=== PATIENT | female | born 2000 | race Caucasian/White ===

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

== ENCOUNTER 2019-04-25 15:29 | Emergency (ER) | payer SELFPAY ==
--- NOTE | 2019-04-25 15:35 | PDOC ---
History of Present Illness - General Chief Complaint: Sore Throat Stated Complaint: "I NEED TO GET STREP THROAT DONE" Time Seen by Provider: 04/25/19 15:35 - History of Present Illness Initial Comments: 04/25/19 17:03 HPI: 19 y/o F with hx of asthma presenting with sore throat since yesterday morning that has been worsening through today. She also reports subjective fevers, chills, rhinorrhea, non-productive cough, and pleuritic chest pain. She reports some SOB, but it is stable on her albuterol inhaler and she hasnt required additional medication or increased frequency. She tried motrin at home with mild relief. She reports multiple sick contacts and is concerned for flu or strep. She denies abd pain, n/v, dysuria, change in appetite. PMHx: as noted above ROS: as noted SHx: reports Juul use and 1 pod lasts 2-3 days; occasional alcohol use; frequent MJ use Allergies: NKDA ROS: GENERAL/CONSTITUTIONAL: +fever and chills. No weakness. HEAD, EYES, EARS, NOSE AND THROAT: No change in vision. No ear pain or discharge. +sore throat. CARDIOVASCULAR: +pleuiritic chest pain and SOB RESPIRATORY: No cough, wheezing, or hemoptysis. GASTROINTESTINAL: No nausea, vomiting, diarrhea or constipation. GENITOURINARY: No dysuria, frequency, or change in urination. MUSCULOSKELETAL: No joint or muscle swelling or pain. No neck or back pain. SKIN: No rash NEUROLOGIC: No headache, vertigo, loss of consciousness, or change in strength/ sensation. ENDOCRINE: No increased thirst. No abnormal weight change HEMATOLOGIC/LYMPHATIC: No anemia, easy bleeding, or history of blood clots. ALLERGIC/IMMUNOLOGIC: No hives or skin allergy. PE: GENERAL: Awake, alert, and fully oriented, no acute distress HEAD: No signs of trauma, normocephalic, atraumatic EYES: EOMI, sclera anicteric, conjunctiva clear ENT: Auricles normal inspection, hearing grossly normal, nares patent, oropharynx with mild erythema, no exudates. Moist mucosa NECK: Normal ROM, no lymphadenopathy LUNGS: No increased work of breathing, symmetrical chest rise, clear to auscultation bilaterally, no wheezes, crackles or rhonchi HEART: Regular rate and rhythm, normal S1 and S2, no murmurs, peripheral pulses 2+ and equal bilaterally. ABDOMEN: Soft, nondistended, nontender, normoactive bowel sounds. No guarding, no rebound. No masses. No CVAT EXTREMITIES: Normal inspection, Normal range of motion, no edema. No clubbing or cyanosis. NEUROLOGICAL: Cranial nerves II through XII grossly intact. Normal speech, normal gait, no focal sensorimotor deficits SKIN: Warm, Dry, normal turgor, no rashes or lesions noted Past History - Past Medical History Allergies/Adverse Reactions: Allergies Allergy/AdvReac Type Severity Reaction Status Date / Time Penicillins Allergy Severe Verified 04/25/19 15:31 Home Medications: Ambulatory Orders Albuterol Sulfate Inhaler - [Ventolin HFA Inhaler -] 2 inh IH Q4H PRN #1 inh 07/11 Asthma: Yes COPD: No - Immunization History Td Vaccination: Yes Immunization Up to Date: Yes - Psycho Social/Smoking Cessation Hx Smoking Status: No Smoking History: Never smoked Have you smoked in the past 12 months: No Number of Cigarettes Smoked Daily: 0 Hx Alcohol Use: No Drug/Substance Use Hx: No Substance Use Type: None Medical Decision Making - Medical Decision Making 04/25/19 18:53 19 y/o F with hx of asthma presenting with sore throat since yesterday morning that has been worsening through today associated with fever, chills, cough, pleuritic chest pain. VSS, AF. PE with mild posterior oropharynx erythema -rapid strep and throat culture 04/25/19 18:57 rapid negative DC home with conservative management recs patient comfortable with plans Discharge - Discharge Information Problems reviewed: Yes Clinical Impression/Diagnosis: Throat pain, Viral syndrome Condition: Stable Disposition: HOME - Follow up/Referral - Patient Discharge Instructions Patient Printed Discharge Instructions: DI for Viral Syndrome Additional Instructions: Additional Instructions: Please return to the emergency department with any new or worsening symptoms or concerns. Please follow up with your primary care physician within 72 hours for re- evaluation You may take motrin 600mg every 6 hours and tylenol 650mg every 6 hours as needed for pain control. You may take over the counter decongestants for symptomatic relief. Recommending warm soups and tea with lemon and honey for symptomatic relief as well. Please ensure adequate hydration - Post Discharge Activity Work/Back to School Note: Back to Work
--- NOTE | 2019-04-25 15:36 | PDOC ---
Attending Attestation - Resident Resident Name: Ranjan Hansen - HPI HPI: 04/25/19 16:29 Pt presents to the ED complaining of a one day history of sore throat, rhinorrhea and sneezing. Denies fever, nausea or vomiting. Tolerating PO with decreased appetite. Denies myalgias. Presents today requesting "strep throat test". - Physicial Exam PE: 04/25/19 16:35 Agree with resident exam. - Medical Decision Making 04/25/19 16:52 pt presents to the ED complaining of sore throat without fever that is most consistent with viral URI. will check rapid strep, discharge home if negative.
[2019-04-25 15:48] VITALS: BP 124/80; PULSE 93; TEMP 99.8; BMI 22.1
[2019-04-25] MEDS ORDERED: ACETAMINOPHEN 500 MG TABLET (FP) PO ONE (16:18)
[2019-04-25] MEDS ORDERED: ACETAMINOPHEN 325 MG TABLET (FP) ONE (16:20)
== END 2019-04-25 17:15 | disposition home or self-care (01) ==
LOC: FER 15:29
DX: B34.9 Viral infection, unspecified (principal); J02.9 Acute pharyngitis, unspecified; J45.909 Unspecified asthma, uncomplicated
CPT/HCPCS: 87070; 87186; 87880; 99281-25

== ENCOUNTER 2019-06-30 12:37 | Emergency (ER) | payer OTHER ==
[2019-06-30 12:55] VITALS: BP 135/80; PULSE 88; TEMP 98.1; BMI 22.1
[2019-06-30] MEDS ORDERED: ALBUTEROL SO4 2.5/IPRATROPIUM 0.5 INH SOL 3 ML VIAL.NEB. NEB ONE ×2 (13:01→13:03)
[2019-06-30] MEDS ORDERED: predniSONE 20 MG TABLET (UD) PO ONE (13:01)
[2019-06-30] MEDS ORDERED: predniSONE 20 MG TABLET (UD) ONE (13:03)
--- NOTE | 2019-06-30 13:06 | PDOC ---
History of Present Illness - General Chief Complaint: Cold Symptoms Stated Complaint: COUGH Time Seen by Provider: 06/30/19 12:43 History Source: Patient Exam Limitations: No Limitations - History of Present Illness Initial Comments: 06/30/19 13:03 19 y/o female with cough for 1 week. Had fever earlier in the week but continues to cough. Took inhaler and Prednisone 20 mg daily for 3 days. No traveling. No N/V/d/C. Is this a multiple visit Asthma Patient?: No Past History - Past Medical History Allergies/Adverse Reactions: Allergies Allergy/AdvReac Type Severity Reaction Status Date / Time Penicillins Allergy Severe Verified 06/30/19 12:38 Home Medications: Ambulatory Orders Albuterol Sulfate Inhaler - [Ventolin HFA Inhaler -] 2 inh IH Q4H PRN #1 inh 07/11 Albuterol 0.083% Nebulizer Marimar [Ventolin 0.083%] 1 neb NEB QID 06/30/19 Azithromycin [Zithromax -] 250 mg PO UTDICT #6 tab 06/30/19 predniSONE [Deltasone -] 20 mg PO BID #10 tablet 06/30/19 Asthma: Yes COPD: No - Immunization History Td Vaccination: Yes Immunization Up to Date: Yes - Psycho Social/Smoking Cessation Hx Smoking Status: No Smoking History: Current every day smoker Have you smoked in the past 12 months: Yes Number of Cigarettes Smoked Daily: 0 Information on smoking cessation initiated: Yes Hx Alcohol Use: No Drug/Substance Use Hx: Yes (MARIJUANA) Substance Use Type: None Review of Systems - Review of Systems Able to Perform ROS?: Yes Is the patient limited Kyrgyz proficient: No Constitutional: No: Chills, Fever Respiratory: Yes: Cough. No: Shortness of Breath Cardiac (ROS): No: Chest Pain, Edema ABD/GI: No: Nausea, Vomiting Musculoskeletal: No: Back Pain All Other Systems: Reviewed and Negative *Physical Exam - Vital Signs Last Vital Signs Temp Pulse Resp BP Pulse Ox 98.1 F 88 20 135/80 100 06/30/19 12:38 06/30/19 12:38 06/30/19 12:38 06/30/19 12:38 06/30/19 12:38 - Physical Exam General Appearance: Yes: Nourished, Appropriately Dressed. No: Apparent Distress HEENT: positive: EOMI, CARISSA, Normal ENT Inspection, Normal Voice, Symmetrical, Pharynx Normal Neck: positive: Trachea midline, Normal Thyroid, Supple. negative: Tender, Rigid Respiratory/Chest: positive: Chest Tender, Normal Breath Sounds. negative: Lungs Clear (coarse breath sounds no wheezing), Respiratory Distress Cardiovascular: positive: Regular Rhythm, Regular Rate, S1, S2. negative: Edema , JVD, Murmur Vascular Pulses: Femoral (R): 4+, Femoral (L): 4+, Carotid (R): 4+, Carotid (L) : 4+, Dorsalis-Pedis (R): 4+, Doralis-Pedis (L): 4+ Gastrointestinal/Abdominal: positive: Normal Bowel Sounds, Flat, Soft. negative : Tender Lymphatic: negative: Adenopathy, Tenderness, Other Musculoskeletal: positive: Normal Inspection. negative: CVA Tenderness Extremity: positive: Normal Capillary Refill, Normal Inspection, Normal Range of Motion. negative: Calf Tenderness (no calf tenderness b/l) Integumentary: positive: Normal Color, Dry, Warm Neurologic: positive: 3d modeler II-XII NML intact, Fully Oriented, Alert, Normal Mood/ Affect, Normal Response, Motor Strength / ED Progress Note - Progress Note Progress Note: 06/30/19 13:05 Pt appears to have asthmatic bronchitis will treat with DuoNeb and Prednisone Obtain CXR 06/30/19 13:34 CXR NAD Patient is feeling better Will treat for asthmatic bronchitis If worsen return to ER Pt is in agreement with plan Discharge - Discharge Information Problems reviewed: Yes Clinical Impression/Diagnosis: Asthmatic bronchitis Qualifiers: Asthma severity: mild Asthma persistence: persistent Asthma complication type: with acute exacerbation Qualified Code(s): J45.31 - Mild persistent asthma with (acute) exacerbation Condition: Good Disposition: HOME - Admission No - Follow up/Referral - Patient Discharge Instructions Patient Printed Discharge Instructions: DI for Acute Bronchitis Additional Instructions: Z-pack as directed Prednisone 20 mg 2x/day for 5 days Continue asthma inhalers as needed If worsen return to ER - Post Discharge Activity Work/Back to School Note: Back to Work
== END 2019-06-30 13:55 | disposition home or self-care (01) ==
LOC: FER 12:37
PROC: 3E0F7GC Introduction of Other Therapeutic Substance into Respiratory Tract, Via Natural or Artificial Opening (ICD-10-PCS; principal; 2019-06-30)
DX: J45.31 Mild persistent asthma with (acute) exacerbation (principal); Z88.0 Allergy status to penicillin; F17.210 Nicotine dependence, cigarettes, uncomplicated
CPT/HCPCS: 71046-TC-FY; 99282-25

== ENCOUNTER 2021-02-13 12:08 | Emergency (ER) | payer OTHER ==
[2021-02-13] MEDS ORDERED: ONDANSETRON *ODT* 4 MG TABLET SL ONE (12:28)
[2021-02-13] MEDS ORDERED: ONDANSETRON *ODT* 4 MG TABLET ONE (12:31)
[2021-02-13 12:35] VITALS: BP 112/72; PULSE 62; TEMP 98; BMI 23.9
[2021-02-13 13:09] LABS: BASO % 2.4 % (0-2.0); EOS % 0.8 % (0-4.5); HEMATOCRIT 41.5 % (32.4-45.2); HEMOGLOBIN 13.6 GM/dl (10.7-15.3); MCH 29.5 pg (25.7-33.7); MCHC 32.8 g/dl (32.0-36.0); MEAN PLT VOLUME 9.7 fl (7.5-11.1); MONO % 6.1 % (3.8-10.2); NEUT % 81.7 % (42.8-82.8); PLATELET COUNT 117 10^3/uL (134-434); RBC 4.62 M/mm3 (3.60-5.2); RDW 12.6 % (11.6-15.6); WHITE BLOOD COUNT 7.2 K/mm3 (4.0-10.8)
[2021-02-13 13:16] LABS: ALBUMIN 4.7 g/dl (3.4-5.0); BILIRUBIN,TOTAL 0.7 mg/dl (0.2-1); CALCIUM 9.1 mg/dl (8.5-10); CREATININE 0.6 mg/dl (0.55-1.3); TOT PROT 7.1 g/dl (6.4-8.2)
[2021-02-13] MEDS ORDERED: KETOROLAC TROMETHAMINE 30 MG/1 ML VIAL IM ONE (13:37)
== END 2021-02-13 14:20 | disposition home or self-care (01) ==
LOC: FER 12:08
DX: N83.202 Unspecified ovarian cyst, left side (principal)
CPT/HCPCS: 36415; 76830-TC; 80053; 81003; 84703; 85025; 93005; 99285-25; C9803; Q0162; U0003; U0005

== ENCOUNTER 2021-06-14 18:00 | Emergency (ER) | payer OTHER ==
[2021-06-14] MEDS ORDERED: ALBUTEROL SO4 2.5/IPRATROPIUM 0.5 INH SOL 3 ML VIAL.NEB. NEB ONE ×3 (18:11→18:42)
[2021-06-14] MEDS ORDERED: predniSONE 20 MG TABLET (UD) PO ONE (18:11)
[2021-06-14 18:18] VITALS: BP 130/68; PULSE 76; TEMP 98.7; BMI 23.0
[2021-06-14] MEDS ORDERED: predniSONE 20 MG TABLET (UD) ONE (18:20)
== END 2021-06-14 19:52 | disposition home or self-care (01) ==
LOC: FER 18:00
PROC: 3E0F7GC Introduction of Other Therapeutic Substance into Respiratory Tract, Via Natural or Artificial Opening (ICD-10-PCS; principal; 2021-06-14)
DX: J45.40 Moderate persistent asthma, uncomplicated (principal)
CPT/HCPCS: 71045-TC-FY; 99284-25